=== PATIENT | female | born 1945 | race Caucasian/White ===

== ENCOUNTER 2017-02-19 18:20 | Emergency (ER) | payer OTHER ==
[~2017-02-19] VITALS: Ht 160 cm; Wt 66.1 kg
[~2017-02-19 18:20] MED LIST: ACET-1256 PO; AMB5 PO; DYZ PO; HRT TOP; MULT-506 PO
[2017-02-19 18:28] VITALS: TEMP 36.9; Ht 160 cm; Wt 66.1 kg
[2017-02-19 19:51] VITALS: O2SAT 98
[2017-02-19] MEDS ORDERED: PROG100C6 PO (20:10)
[2017-02-19] MEDS ORDERED: HRT PO (20:10)
[2017-02-19] MEDS ORDERED: ZOLP5TAB PO (20:10)
[2017-02-19] MEDS ORDERED: SODIUM CHLORIDE 0.9% 1000ML 2,000 ML IV STA (20:14)
[2017-02-19] MEDS ORDERED: ONDANSETRON INJ 2 MG/ML 2 ML VIAL IV STA (20:14)
[2017-02-19 20:32] LABS: MEAN CELL VOLUME 93.4 fL (80-100); MEAN CORPUSCULAR HEMOGLOBIN 32.3 pg (25-34); MEAN CORPUSCULAR HGB CONC 34.6 g/dl (32-36); MEAN PLATELET VOLUME 9.2 fL (7.4-10.4); PLATELET COUNT 357 K/uL (130-400); RED BLOOD COUNT 4.39 M/uL (4.2-5.4); WHITE BLOOD COUNT 6.69 K/uL (4.8-10.8)
[2017-02-19 20:36] LABS: CALCIUM 8.6 mg/dl (8.5-10.1); CREATININE 0.93 mg/dl (0.60-1.20); POTASSIUM 3.8 mmol/L (3.5-5.1)
[2017-02-19 20:50] LABS: URINE APPEARANCE CLOUDY (CLEAR); URINE BILIRUBIN NEG (NEG); URINE COLOR YELLOW; URINE EPITHELIAL CELL AUTO >30 /lpf (0-5); URINE NITRITE NEG (NEG); URINE SPECIFIC GRAVITY 1.023 (1.000-1.030); UROBILINOGEN NEG (NEG); ZZUR CULT IF INDIC CLEAN CATCH NO
[2017-02-19 20:51] LABS: MANUAL MICROSCOPIC REQUIRED? NO; REVIEW REQ? NO
--- NOTE | 2017-02-19 21:22 | DIAGNOSTIC IMAGING REPORT ---
PA CHEST RADIOGRAPH AND UPRIGHT AND SUPINE AP RADIOGRAPHS OF THE ABDOMEN CLINICAL HISTORY: Nausea, vomiting and diarrhea. COMPARISON STUDY: Chest radiograph October 31, 2009. FINDINGS: Lung volumes are normal. There is no pneumothorax or pleural effusion. There is no evidence of pulmonary edema. Cardiomediastinal silhouette is normal. There is no free air. There are few prominent loops of small bowel without convincing evidence for a bowel obstruction. IMPRESSION: 1. No free air. 2. A few prominent loops of small bowel without convincing evidence for a small bowel obstruction. 3. No acute cardiopulmonary findings. Electronically signed by: Elliott Maldonado M.D. 02/19/2017 9:20 PM Dictated Date/Time: 02/19/2017 9:19 PM
--- NOTE | 2017-02-19 22:52 | EMERGENCY ROOM VISIT NOTE ---
History Report prepared by Laisha: Lydia Rehman Under the Supervision of: Dr. Mami Esparza D.O. First contact with patient: 19:40 Chief Complaint: VOMITING Stated Complaint: VOMITTING, CHILLS, DIARREHA Nursing Triage Summary: Pt presents with chills, vomiting bile, diarrhea since 1000. Bloating. Denies abd pain. States unable to keep water down. History of Present Illness The patient is a 71 year old female who presents to the Emergency Room with complaints of persistent vomiting starting this morning at 1000. She reports that she felt nauseous this morning and has been vomiting bile all day. She has not been able to keep anything down. She has not had an appetite since yesterday and has not been able to eat anything today. She reports she slept all day which is very unusual for her. She also has been having diarrhea which she describes as being all liquid. She has had chills all day today. Patient has been under a lot of stress recently with her work. 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 She denies any abdominal pain, hematemesis , melena, or hematochezia. She has a history of IBS. She currently feels bloated. She denies any dietary changes or recent travel. She has no history of abdominal surgery. She reports that she was on Augmentin for 17 days last month for sinusitis. She was also on a steroid. She finished her antibiotics 2 weeks ago. She has not had any abnormal diarrhea between finishing her antibiotics and this morning when her symptoms started. Source of History: patient Onset: 1000 this morning Position: other (global) Quality: other (vomiting) Timing: other (persistent) Associated Symptoms: + chills, + diarrhea, + nausea, No abdominal pain, No hematochezia, No melena Note: Pt denies hematemesis. Review of Systems See HPI for pertinent positives & negatives. A total of 10 systems reviewed and were otherwise negative. Past Medical & Surgical Medical Problems: (1) Aging face and neck (2) Chronic sinusitis (3) IBS (irritable bowel syndrome) Family History Pt reports no pertinent family history. Social History Smoking Status: Never Smoker Marital Status: single Occupation Status: employed Current/Historical Medications Scheduled Acetaminophen (Tylenol), 500 MG PO PRN Multivitamin (Multivitamin), 1 TAB PO DAILY Progesterone (Prometrium), 100 MG PO DAILY Zolpidem Tartrate (Ambien), 5 MG PO HS [Hrt], 0.25 MG PO UD Scheduled PRN Ondasetron Odt (Zofran Odt), 4 MG SL Q8H PRN for nausea Allergies Coded Allergies: Clindamycin (Verified Allergy, Mild, RASH, 12/28/09) Penicillins (Verified Allergy, Mild, RASH, 12/28/09) Quinolones (Verified Allergy, Mild, RASH, 12/28/09) Physical Exam Vital Signs Date Time Temp Pulse Resp B/P Pulse Ox O2 Delivery O2 Flow Rate FiO2 02/19/17 23:35 92 18 139/72 93 02/19/17 22:10 91 18 139/71 98 Room Air 02/19/17 19:52 95 18 146/85 98 Room Air 02/19/17 19:51 98 Room Air 02/19/17 18:28 36.9 113 18 155/85 98 Room Air Physical Exam GENERAL: alert, well appearing, well nourished, no distress, non-toxic EYE EXAM: normal conjunctiva, PERRL and EOM's grossly intact OROPHARYNX: no exudate, no erythema, buccal mucosa, and tongue normal and mucous membranes are dry, lips are cracked NECK: supple, no nuchal rigidity, no adenopathy, non-tender LUNGS: Clear to auscultation. Normal chest wall mechanics HEART: no murmurs, S1 normal and S2 normal ABDOMEN: abdomen soft, non-tender, normo-active bowel sounds, no masses, no rebound or guarding. BACK: Back is symmetrical on inspection and there is no deformity, no midline tenderness, no CVA tenderness. SKIN: no rashes and no bruising UPPER EXTREMITIES: upper extremities are grossly normal. LOWER EXTREMITIES: No pitting edema. NEURO EXAM: Normal sensorium, cranial nerves II-XII grossly intact, normal speech, no gross weakness of arms, no gross weakness of legs. Medical Decision & Procedures ER Provider Diagnostic Interpretation: Xray results per the radiologist and my interpretation. PA CHEST RADIOGRAPH AND UPRIGHT AND SUPINE AP RADIOGRAPHS OF THE ABDOMEN CLINICAL HISTORY: Nausea, vomiting and diarrhea. COMPARISON STUDY: Chest radiograph October 31, 2009. FINDINGS: Lung volumes are normal. There is no pneumothorax or pleural effusion. There is no evidence of pulmonary edema. Cardiomediastinal silhouette is normal. There is no free air. There are few prominent loops of small bowel without convincing evidence for a bowel obstruction. IMPRESSION: 1. No free air. 2. A few prominent loops of small bowel without convincing evidence for a small bowel obstruction. 3. No acute cardiopulmonary findings. Electronically signed by: Elliott Maldonado M.D. 02/19/2017 9:20 PM Dictated Date/Time: 02/19/2017 9:19 PM Laboratory Results 02/19/17 19:48 Red Blood Count 4.39, Mean Corpuscular Volume 93.4, Mean Corpuscular Hemoglobin 32.3, Mean Corpuscular Hemoglobin Concent 34.6, Mean Platelet Volume 9.2, Neutrophils (%) (Auto) 84.8, Lymphocytes (%) (Auto) 9.1, Monocytes (%) (Auto) 5.8, Eosinophils (%) (Auto) 0.1, Basophils (%) (Auto) 0.1, Neutrophils # (Auto) 5.66, Lymphocytes # (Auto) 0.61, Monocytes # (Auto) 0.39, Eosinophils # (Auto) 0.01, Basophils # (Auto) 0.01 02/19/17 19:48 Test 02/19/17 19:48 02/19/17 20:25 02/19/17 22:39 White Blood Count 6.69 K/uL (4.8-10.8) Red Blood Count 4.39 M/uL (4.2-5.4) Hemoglobin 14.2 g/dL (12.0-16.0) Hematocrit 41.0 % (37-47) Mean Corpuscular Volume 93.4 fL (80-100) Mean Corpuscular Hemoglobin 32.3 pg (25-34) Mean Corpuscular Hemoglobin Concent 34.6 g/dl (32-36) Platelet Count 357 K/uL (130-400) Mean Platelet Volume 9.2 fL (7.4-10.4) Neutrophils (%) (Auto) 84.8 % Lymphocytes (%) (Auto) 9.1 % Monocytes (%) (Auto) 5.8 % Eosinophils (%) (Auto) 0.1 % Basophils (%) (Auto) 0.1 % Neutrophils # (Auto) 5.66 K/uL (1.4-6.5) Lymphocytes # (Auto) 0.61 K/uL (1.2-3.4) Monocytes # (Auto) 0.39 K/uL (0.11-0.59) Eosinophils # (Auto) 0.01 K/uL (0-0.5) Basophils # (Auto) 0.01 K/uL (0-0.2) RDW Standard Deviation 44.6 fL (36.4-46.3) RDW Coefficient of Variation 13.0 % (11.5-14.5) Immature Granulocyte % (Auto) 0.1 % Immature Granulocyte # (Auto) 0.01 K/uL (0.00-0.02) Red Blood Cell Morphology Unremarkable Anion Gap 12.0 mmol/L (3-11) Est Creatinine Clear Calc Drug Dose 52.2 ml/min Estimated GFR () 72.7 Estimated GFR (Non- 62.7 BUN/Creatinine Ratio 16.0 (10-20) Calcium Level 8.6 mg/dl (8.5-10.1) Total Bilirubin 1.4 mg/dl (0.2-1) Aspartate Amino Transf (AST/SGOT) 12 U/L (15-37) Alanine Aminotransferase (ALT/SGPT) 29 U/L (12-78) Alkaline Phosphatase 72 U/L (45-117) Total Protein 8.1 gm/dl (6.4-8.2) Albumin 4.1 gm/dl (3.4-5.0) Globulin 4.0 gm/dl (2.5-4.0) Albumin/Globulin Ratio 1.0 (0.9-2) Lipase 105 U/L (73-393) Urine Color YELLOW Urine Appearance CLOUDY (CLEAR) Urine pH 5.0 (4.5-7.5) Urine Specific [place] 1.023 (1.000-1.030) Urine Protein NEG (NEG) Urine Glucose (UA) NEG (NEG) Urine Ketones NEG (NEG) Urine Occult Blood 2+ (NEG) Urine Nitrite NEG (NEG) Urine Bilirubin NEG (NEG) Urine Urobilinogen NEG (NEG) Urine Leukocyte Esterase NEG (NEG) Urine WBC (Auto) 1-5 /hpf (0-5) Urine RBC (Auto) 5-10 /hpf (0-4) Urine Hyaline Casts (Auto) 1-5 /lpf (0-5) Urine Epithelial Cells (Auto) >30 /lpf (0-5) Urine Bacteria (Auto) NEG (NEG) Bedside Lactic Acid Venous 1.51 mmol/L (0.90-1.70) Laboratory results per my review. Medications Administered Medications (Trade) Dose Ordered Sig/[place] Route Start Time Stop Time Status Last Admin Dose Admin Sodium Chloride (Nss 1000ml) 2,000 ml @ 999 mls/hr Q2H1M STAT IV 02/19/17 20:14 02/19/17 22:14 DC 02/19/17 20:33 999 MLS/HR Ondansetron HCl (Zofran Inj) 4 mg NOW STAT IV 02/19/17 20:14 02/19/17 20:16 DC 02/19/17 20:33 4 MG ECG Indication: vomiting Rate (beats per minute): 93 Rhythm: sinus rhythm Findings: no acute ischemic change, other (normal axis, normal interval) ED Course 1946: The patient was evaluated in room C12. A complete history and physical exam was performed. 2013: Zofran 4 mg IV, NSS 2000 ml @ 999 mls/hr IV. 2112: I reevaluated the patient. She is anxious to drink liquids, but she will try. 2299: Patient tolerating by mouth, no occurrence of any abdominal pain, no recurrent vomiting or diarrhea since being in the emergency room. Recheck of lactic acid improved, and likely originally elevated due to dehydration. Patient's abdominal exam at bedside soft and nontender, patient's tolerating sips of by mouth and would like to try crackers. Medical Decision Differential diagnosis: viral syndrome, colitis, bowel obstruction, infectious diarrhea, mesenteric ischemia, perforation, GI bleed. Pt with likely viral syndrome and dehydration. Lactic acid improved with rehydration, no abd pain, no recurrent vomiting/diarrhea, pt felt markedly improved with IVF and zofran. Low suspicion for occult infectious diarrhea including c.diff, doubt mesenteric ischemia, colitis, perf, vascular etiology, occult gi bleed. Pt improved, VS stable, tolerating po and ambulating with steady gait. No other concurrent sx to suggest additional cardiopulmonary pathology. Discussed with pt sx to watch/return for, f/u with PCP as a precaution, she verbalized understanding and was agreeable with plan. Impression Primary Impression: Nausea, vomiting, and diarrhea Additional Impression: Dehydration Scribe Attestation The scribe's documentation has been prepared under my direction and personally reviewed by me in its entirety. I confirm that the note above accurately reflects all work, treatment, procedures, and medical decision making performed by me. Departure Information Dispostion Home / Self-Care Prescriptions Ondasetron Odt (ZOFRAN ODT) 4 Mg Tab 4 MG SL Q8H Y for nausea, #20 TAB Prov: Mami Esparza, DO 02/19/17 Referrals Camilla Galeana D.OMomo (PCP) Patient Instructions My [facility] Additional Instructions Please rest and sip clear liquids in frequent intervals to stay well-hydrated. You may use a nausea medication was provided. If you have any recurrent episodes of vomiting or diarrhea, develop abdominal pain, fevers, dizziness, chest pain, runny other new concerns, please return to ER immediately. Problem Qualifiers
[2017-02-19] MEDS ORDERED: ONDA4TAB10 SL (22:54)
[2017-02-19 23:35] VITALS: BP 139/72; PULSE 92; O2SAT 93
[2017-02-19] MEDS ORDERED: ONDANSETRON HOME PACK 4MG OD TAB ONE (23:38)
[2017-02-19 23:59] LABS: BASO % 0.1 %; BASO ABS # 0.01 K/uL (0-0.2); COMPLETE YES; EOS % 0.1 %; IG% 0.1 %; LYMPH % 9.1 %; LYMPH ABS # 0.61 K/uL (1.2-3.4); MONO % 5.8 %; NEUT % 84.8 %
== END 2017-02-19 23:30 | disposition home or self-care (01) ==
LOC: C.EDB 18:22 → C.EDC 23:30
DX: E86.0 Dehydration (principal); R11.2 Nausea with vomiting, unspecified; R19.7 Diarrhea, unspecified; K58.9 Irritable bowel syndrome, unspecified; Z79.899 Other long term (current) drug therapy; Z88.0 Allergy status to penicillin; Z88.1 Allergy status to other antibiotic agents; Z88.8 Allergy status to other drugs, medicaments and biological substances

== ENCOUNTER 2018-02-02 20:09 | Emergency (ER) | payer OTHER ==
[~2018-02-02] VITALS: Ht 157.5 cm; Wt 61.8 kg
[~2018-02-02 20:09] MED LIST changes: -AMB5 PO; -DYZ PO; +HRT PO; -HRT TOP; +PROG100C6 PO
[2018-02-02] MEDS ORDERED: ZOLP5TAB PO (20:10)
[2018-02-02 20:13] VITALS: TEMP 36.7; Ht 157.5 cm; Wt 61.8 kg
[2018-02-02] MEDS ORDERED: FENTANYL CITRATE INJ 50 MCG/1 ML 2 ML VIAL IV STA ×2 (20:30→22:01)
[2018-02-02] MEDS ORDERED: SODIUM CHLORIDE 0.9% 1000ML 2,000 ML IV STA (20:30)
[2018-02-02] MEDS ORDERED: ONDANSETRON INJ 2 MG/ML 2 ML VIAL IV STA ×2 (20:30→22:01)
[2018-02-02 20:42] LABS: BASO % 0.2 %; BASO ABS # 0.03 K/uL (0-0.2); EOS % 0.2 %; EOS ABS # 0.03 K/uL (0-0.5); HEMOGLOBIN 13.7 g/dL (12.0-16.0); IG# 0.03 K/uL (0.00-0.02); LYMPH % 13.1 %; LYMPH ABS # 1.98 K/uL (1.2-3.4); MEAN CELL VOLUME 93.5 fL (80-100); MEAN CORPUSCULAR HGB CONC 34.3 g/dl (32-36); MEAN PLATELET VOLUME 9.3 fL (7.4-10.4); MONO % 8.4 %; MONO ABS # 1.28 K/uL (0.11-0.59); NEUT % 77.9 %; NEUT ABS # 11.81 K/uL (1.4-6.5); PLATELET COUNT 317 K/uL (130-400); RED CELL DISTRIBUTION WIDTH CV 13.2 % (11.5-14.5); WHITE BLOOD COUNT 15.16 K/uL (4.8-10.8)
[2018-02-02] MEDS ORDERED: HYDR25TA5 (20:53)
[2018-02-02] MEDS ORDERED: ENOX60IN SQ (20:53)
[2018-02-02] MEDS ORDERED: CLON0.5T3 PO (20:54)
[2018-02-02] MEDS ORDERED: OPTIRAY 320 IV PRN (21:15)
[2018-02-02 21:34] LABS: POTASSIUM 4.1 mmol/L (3.5-5.1)
[2018-02-02 21:45] LABS: CREATININE 1.04 mg/dl (0.60-1.20); TOTAL PROTEIN 8.1 gm/dl (6.4-8.2)
--- NOTE | 2018-02-02 23:12 | DIAGNOSTIC IMAGING REPORT ---
CT OF THE ABDOMEN AND PELVIS WITH CONTRAST CLINICAL HISTORY: Constipation and abdominal pain status post endometrial cancer surgery. COMPARISON STUDY: Abdominal series February 19, 2017. TECHNIQUE: Following IV administration of 93 mL of Optiray-320, axial images of the abdomen and pelvis were obtained from the lung bases to the proximal femurs. Images were reviewed in the axial, sagittal, and coronal planes. IV contrast was administered without complication. A dose lowering technique was utilized adhering to the principles of ALARA. CT DOSE: 349.53 mGy.cm FINDINGS: The liver, spleen, adrenal glands, kidneys and pancreas are unremarkable. There is no biliary or pancreatic ductal dilatation. There is no hydronephrosis or hydroureter. There is no evidence for a bowel obstruction. There is a large amount of stool within the rectum. There is marked distention of the bladder. The uterus is surgically absent. There is infiltration and multiple small locules of gas within the hysterectomy bed. This measures 4.3 x 3.5 x 1.9 cm. There is mild adjacent infiltration. There is no drainable fluid collection. No abdominal or pelvic lymphadenopathy is present. No suspicious osseous lesion is noted. Subtle infiltration adjacent to the umbilicus is likely postsurgical. IMPRESSION: 1. Postsurgical findings suggestive of recent hysterectomy. 4.3 x 3.5 x 1.9 cm focus of infiltration and extraluminal gas within the hysterectomy bed. If recent surgery, the findings likely reflect expected postsurgical change. Phlegmon could appear similar. No drainable fluid collection to suggest abscess. No hematoma. 2. Marked distention of the bladder. 3. Large amount of stool within the rectum. No bowel obstruction. Electronically signed by: Elliott Maldonado M.D. 02/02/2018 11:10 PM Dictated Date/Time: 02/02/2018 11:02 PM
[2018-02-02] MEDS ORDERED: METOCLOPRAMIDE HCL INJ 5 MG/ML 2 ML VIAL IV STA (23:17)
[2018-02-02] MEDS ORDERED: SOAP SUDS ENEMA PR STA (23:17)
--- NOTE | 2018-02-03 00:48 | EMERGENCY ROOM VISIT NOTE ---
History Report prepared by Laisha: Lydia Rehman Under the Supervision of: Dr. Christopher Samano M.D. First contact with patient: 20:19 Chief Complaint: ABDOMINAL PAIN Stated Complaint: ABD PAIN,POST SURGERY History of Present Illness The patient is a 72 year old female who presents to the Emergency Room with complaints of persistent abdominal pain starting today. The patient had surgery for endometrial cancer 1 week ago. She was in the hospital for 5 hours. She had been having regular bowel movements since the surgery. She has not had much pain. She was discharged home with oxycodone, but she has not been taking them frequently. She last took some 2 nights ago. She went to work today and started having some pain. When she returned home, she started having chills and felt constipated. She had a bowel movement today which was harder than normal. She is nauseous and has vomited several times today. She reports some dizziness and cough. She denies any congestion. She has a history of hypertension. She was discharged home on Lovenox. She denies any history of blood clots. Source of History: patient Onset: today Position: abdomen Quality: other (pain) Timing: other (persistent) Associated Symptoms: + chills, + cough, + nausea, + vomiting Note: Pt reports constipation. Review of Systems See HPI for pertinent positives and negatives. A total of ten systems were reviewed and were otherwise negative. Past Medical & Surgical Medical Problems: (1) Aging face and neck (2) Chronic sinusitis (3) IBS (irritable bowel syndrome) Family History Cancer Diabetes mellitus Gallbladder disease Heart disease Hypertension Kidney disease Kidney stones Social History Smoking Status: Never Smoker Occupation Status: employed Current/Historical Medications Scheduled Acetaminophen (Tylenol), 500 MG PO PRN Clonazepam (Klonopin), 0.5 MG PO UD Enoxaparin (Lovenox), Unknown Dose SQ DAILY Multivitamin (Multivitamin), 1 TAB PO DAILY Zolpidem Tartrate (Ambien), 5 MG PO HS Miscellaneous Medications Hydrochlorothiazide (Hydrochlorothiazide) Allergies Coded Allergies: Clindamycin (Verified Allergy, Mild, RASH, 12/28/09) Penicillins (Verified Allergy, Mild, RASH, 12/28/09) Quinolones (Verified Allergy, Mild, RASH, 12/28/09) Ampicillin (Unverified Allergy, Unknown, rash, 02/02/18) Physical Exam Vital Signs Date Time Temp Pulse Resp B/P (MAP) Pulse Ox O2 Delivery O2 Flow Rate FiO2 02/03/18 00:55 101 20 132/63 97 02/02/18 23:11 87 20 152/87 97 Room Air 02/02/18 20:35 102 02/02/18 20:13 36.7 119 20 151/99 98 Room Air Physical Exam GENERAL: Awake, alert, uncomfortable-appearing, in no distress HENT: Normocephalic, atraumatic. Dry mucous membranes. EYES: Normal conjunctiva. Sclera non-icteric. NECK: Supple. No nuchal rigidity. FROM. No JVD. RESPIRATORY: Clear to auscultation. CARDIAC: Regular rate, normal rhythm. Extremities warm and well perfused. Pulses equal. ABDOMEN: Soft, non-distended. Moderate tenderness to palpation of the lower abdomen. Recent surgical incision without erythema, warmth, or crepitus. No rebound or guarding. No masses. RECTAL: Deferred. MUSCULOSKELETAL: Chest examination reveals no tenderness. The back is symmetrical on inspection without obvious abnormality. There is no CVA tenderness to palpation. No joint edema. LOWER EXTREMITIES: Calves are equal size bilaterally and non-tender. No edema. No discoloration. NEURO: Normal sensorium. No sensory or motor deficits noted. SKIN: No rash or jaundice noted. Medical Decision & Procedures ER Provider Diagnostic Interpretation: Radiology results as stated below per my review and radiologist interpretation: CT OF THE ABDOMEN AND PELVIS WITH CONTRAST CLINICAL HISTORY: Constipation and abdominal pain status post endometrial cancer surgery. COMPARISON STUDY: Abdominal series February 19, 2017. TECHNIQUE: Following IV administration of 93 mL of Optiray-320, axial images of the abdomen and pelvis were obtained from the lung bases to the proximal femurs. Images were reviewed in the axial, sagittal, and coronal planes. IV contrast was administered without complication. A dose lowering technique was utilized adhering to the principles of ALARA. CT DOSE: 349.53 mGy.cm FINDINGS: The liver, spleen, adrenal glands, kidneys and pancreas are unremarkable. There is no biliary or pancreatic ductal dilatation. There is no hydronephrosis or hydroureter. There is no evidence for a bowel obstruction. There is a large amount of stool within the rectum. There is marked distention of the bladder. The uterus is surgically absent. There is infiltration and multiple small locules of gas within the hysterectomy bed. This measures 4.3 x 3.5 x 1.9 cm. There is mild adjacent infiltration. There is no drainable fluid collection. No abdominal or pelvic lymphadenopathy is present. No suspicious osseous lesion is noted. Subtle infiltration adjacent to the umbilicus is likely postsurgical. IMPRESSION: 1. Postsurgical findings suggestive of recent hysterectomy. 4.3 x 3.5 x 1.9 cm focus of infiltration and extraluminal gas within the hysterectomy bed. If recent surgery, the findings likely reflect expected postsurgical change. Phlegmon could appear similar. No drainable fluid collection to suggest abscess. No hematoma. 2. Marked distention of the bladder. 3. Large amount of stool within the rectum. No bowel obstruction. Electronically signed by: Elliott Maldonado M.D. 02/02/2018 11:10 PM Dictated Date/Time: 02/02/2018 11:02 PM Laboratory Results 02/02/18 20:30 Red Blood Count 4.28, Mean Corpuscular Volume 93.5, Mean Corpuscular Hemoglobin 32.0, Mean Corpuscular Hemoglobin Concent 34.3, Mean Platelet Volume 9.3, Neutrophils (%) (Auto) 77.9, Lymphocytes (%) (Auto) 13.1, Monocytes (%) (Auto) 8.4, Eosinophils (%) (Auto) 0.2, Basophils (%) (Auto) 0.2, Neutrophils # (Auto) 11.81, Lymphocytes # (Auto) 1.98, Monocytes # (Auto) 1.28, Eosinophils # (Auto) 0.03, Basophils # (Auto) 0.03 02/02/18 20:30 Test 02/02/18 20:30 02/02/18 23:05 White Blood Count 15.16 K/uL (4.8-10.8) Red Blood Count 4.28 M/uL (4.2-5.4) Hemoglobin 13.7 g/dL (12.0-16.0) Hematocrit 40.0 % (37-47) Mean Corpuscular Volume 93.5 fL (80-100) Mean Corpuscular Hemoglobin 32.0 pg (25-34) Mean Corpuscular Hemoglobin Concent 34.3 g/dl (32-36) Platelet Count 317 K/uL (130-400) Mean Platelet Volume 9.3 fL (7.4-10.4) Neutrophils (%) (Auto) 77.9 % Lymphocytes (%) (Auto) 13.1 % Monocytes (%) (Auto) 8.4 % Eosinophils (%) (Auto) 0.2 % Basophils (%) (Auto) 0.2 % Neutrophils # (Auto) 11.81 K/uL (1.4-6.5) Lymphocytes # (Auto) 1.98 K/uL (1.2-3.4) Monocytes # (Auto) 1.28 K/uL (0.11-0.59) Eosinophils # (Auto) 0.03 K/uL (0-0.5) Basophils # (Auto) 0.03 K/uL (0-0.2) RDW Standard Deviation 45.0 fL (36.4-46.3) RDW Coefficient of Variation 13.2 % (11.5-14.5) Immature Granulocyte % (Auto) 0.2 % Immature Granulocyte # (Auto) 0.03 K/uL (0.00-0.02) Anion Gap 10.0 mmol/L (3-11) Est Creatinine Clear Calc Drug Dose 43.5 ml/min Estimated GFR () 63.0 Estimated GFR (Non- 54.4 BUN/Creatinine Ratio 18.2 (10-20) Calcium Level 10.0 mg/dl (8.5-10.1) Total Bilirubin 0.8 mg/dl (0.2-1) Direct Bilirubin 0.2 mg/dl (0-0.2) Aspartate Amino Transf (AST/SGOT) 244 U/L (15-37) Alanine Aminotransferase (ALT/SGPT) 172 U/L (12-78) Alkaline Phosphatase 118 U/L (45-117) Total Protein 8.1 gm/dl (6.4-8.2) Albumin 4.0 gm/dl (3.4-5.0) Lipase 122 U/L (73-393) Urine Color YELLOW Urine Appearance CLEAR (CLEAR) Urine pH 5.5 (4.5-7.5) Urine Specific [place] 1.027 (1.000-1.030) Urine Protein NEG (NEG) Urine Glucose (UA) NEG (NEG) Urine Ketones NEG (NEG) Urine Occult Blood 1+ (NEG) Urine Nitrite NEG (NEG) Urine Bilirubin NEG (NEG) Urine Urobilinogen NEG (NEG) Urine Leukocyte Esterase NEG (NEG) Urine WBC (Auto) 1-5 /hpf (0-5) Urine RBC (Auto) 5-10 /hpf (0-4) Urine Hyaline Casts (Auto) 0 /lpf (0-5) Urine Epithelial Cells (Auto) 5-10 /lpf (0-5) Urine Bacteria (Auto) NEG (NEG) Laboratory results reviewed by me Medications Administered Medications (Trade) Dose Ordered Sig/[place] Route Start Time Stop Time Status Last Admin Dose Admin Sodium Chloride 2,000 ml @ 999 mls/hr Q2H1M STAT IV 02/02/18 20:30 02/02/18 22:30 DC 02/02/18 20:30 999 MLS/HR Fentanyl Citrate (Fentanyl Inj) 50 mcg NOW STAT IV 02/02/18 20:30 02/02/18 20:34 DC 02/02/18 20:47 50 MCG Ondansetron HCl (Zofran Inj) 4 mg NOW STAT IV 02/02/18 20:30 02/02/18 20:34 DC 02/02/18 20:47 4 MG Ondansetron HCl (Zofran Inj) 4 mg NOW STAT IV 02/02/18 22:01 02/02/18 22:03 DC 02/02/18 22:04 4 MG Fentanyl Citrate (Fentanyl Inj) 50 mcg NOW STAT IV 02/02/18 22:01 02/02/18 22:03 DC 02/02/18 22:04 50 MCG Metoclopramide HCl (Reglan Inj) 10 mg NOW STAT IV 02/02/18 23:17 02/02/18 23:19 DC 02/02/18 23:43 10 MG Miscellaneous (Soap Suds Enema) 1 ea NOW STAT [place] 02/02/18 23:17 02/02/18 23:19 DC 02/02/18 23:17 1 EA ED Course 2021: The patient was evaluated in room C9. A complete history and physical exam was performed. 0048: I reevaluated the patient. Discussed results and discharge instructions: She verbalized understanding and agreement. The patient is ready for discharge. Medical Decision I reviewed the patient's past medical history, medications, and the nursing notes as described above. Differential diagnosis: Etiologies such as appendicitis, diverticulitis, PUD, biliary pathology, UTI, pancreatitis, obstruction, mesenteric ischemia, aortic pathology, infections, inflammatory bowel disease, renal colic, as well as others were entertained. The patient is a 72 y/o woman with a pmhx of hysterectomy last week for endometrial cancer presents to the emergency department with lower abdominal pain and constipation per HPI. On arrival the patient is uncomfortable but in NAD, AFVSS. On exam, the patient has mild lower abdominal ttp. WBC 15 nonspecific. AST 200s, ALT 100s possible acute phase in the setting of recent surgery. CT demonstrates large amount of stool in the rectum c/w constipation. Patient reports taking oxycodone post-op but stopped taking her colace, which likely explains the patient's sx. Enema and reglan ordered however the patient did have a spontaneous large BM, which significant relief. Patient still requesting enema given she feels she still feel need to move her bowels. Enema given with some additional effect. Patient much improved. Findings and plan for follow-up reviewed with patient. Patient agreeable and d/c'd per discharge instructions. Medication Reconcilliation Current Medication List: was personally reviewed by me Blood Pressure Screening Patient's blood pressure: Elevated blood pressure Blood pressure disposition: Elevated BP felt to be situational Impression Primary Impression: Constipation Scribe Attestation The scribe's documentation has been prepared under my direction and personally reviewed by me in its entirety. I confirm that the note above accurately reflects all work, treatment, procedures, and medical decision making performed by me. Departure Information Dispostion Home / Self-Care Referrals Camilla Galeana D.O. (PCP) Patient Instructions ED Constipation, My [facility] Additional Instructions Please follow up with your primary care physician in the next 1-3 days for re- evaluation. Your symptoms were due to constipation. Otherwise, your exam, lab results, and CT scan did not show signs of an emergent condition at this time. Continue your home colace. Drink plenty of fluids to ensure hydration. Return to the emergency department for worsening symptoms as described in the accompanying instructions.
[2018-02-03 00:55] VITALS: BP 132/63; PULSE 101; O2SAT 97
== END 2018-02-03 00:56 | disposition home or self-care (01) ==
LOC: C.EDB 20:11 → C.EDC 02-03 00:56
DX: K59.00 Constipation, unspecified (principal); C54.1 Malignant neoplasm of endometrium; I10 Essential (primary) hypertension; K58.9 Irritable bowel syndrome, unspecified; J32.9 Chronic sinusitis, unspecified; Z90.710 Acquired absence of both cervix and uterus; Z79.01 Long term (current) use of anticoagulants; Z83.3 Family history of diabetes mellitus; Z82.49 Family history of ischemic heart disease and other diseases of the circulatory system; Z84.1 Family history of disorders of kidney and ureter; Z88.1 Allergy status to other antibiotic agents; Z88.0 Allergy status to penicillin